=== PATIENT | female | born 1985 | race Caucasian/White ===

== ENCOUNTER 2025-02-12 04:04 | Emergency (ER) | payer SELFPAY ==
[~2025-02-12] VITALS: Ht 167.6 cm; Wt 68.0 kg
[2025-02-12] MEDS ORDERED: Ibuprofen 600 MG Tab PO ONE (04:50)
[2025-02-12] MEDS ORDERED: Penicillin V P500 MG PO (04:55)
[2025-02-12] MEDS ORDERED: Acetaminophen 500 MG Tab PO ONE (04:55)
[2025-02-12] MEDS ORDERED: Penicillin V Potassium 250 MG Tab PO ONE (04:55)
== END 2025-02-12 05:15 | disposition home or self-care (01) ==
LOC: ER 04:04
DX: K04.7 Periapical abscess without sinus (principal); Z59.89 Other problems related to housing and economic circumstances
CPT/HCPCS: 99282; A9270